=== PATIENT | male | born 1980 | race Caucasian/White ===

== ENCOUNTER 2016-10-21 13:03 | Emergency (ER) | payer OTHER ==
[~2016-10-21] VITALS: Ht 180.3 cm; Wt 112.5 kg
[2016-10-21 14:59] LABS: UA SPECIFIC GRAVITY 1.015 (1.005-1.035); microscopic required? YES; urine erythrocyte NEGATIVE (NEGATIVE)
[2016-10-21 15:15] VITALS: BP 122/68
== END 2016-10-21 15:15 | disposition home or self-care (01) ==
LOC: ED 13:03
PROVIDERS: Emergency Medicine
DX: N50.3 Cyst of epididymis (principal); N50.811 Right testicular pain
CPT/HCPCS: Q0092